=== PATIENT | female | born 1965 | race Caucasian/White ===

== ENCOUNTER 2016-09-22 | Emergency (ER) | payer MEDICARE, OTHER, MEDICAID ==
[~2016-09-22] MED LIST: ARANESP IJ; ATENOLOL50 MG PO; BABY ASPIRIN81 MG PO; BENADRYL ALLERG25 M1 PO; BIOTIN PO; BUDESONIDE EC3 M1 PO; CALCITRIOL0.5 MC1 PO; CALCITRIOL0.5 MCG PO; CALCITRIOL1 MCG/1 ML IV; CALCIUM + D T1 UDTAB PO; CALCIUM ACETAT667 MG PO; CALCIUM PO; CATAPRES0.3 M1 PO; CHILDREN'S ASPI81 M1 PO; CLEOCIN HCL300 MG PO; CLONIDINE HCL0.3 M1 PO; CLONIDINE HCL0.3 MG PO; COREG25 M1 PO; DIPHENHYDRAMINE PO; DULCOLAX5 M1 PO; EMLA CREAM30 GM TP; EPOGEN10000 U/ML IJ; ERGOCALCIF50000 UNIT PO; FLAX SEED OIL1000 M2 PO; GLIPIZIDE ER2.5 MG PO; HYDRALAZINE HCL10 M1 PO; HYDROCODONE/APA1 CAP PO; HYDROXYZINE HCL25 MG PO; LASIX40 M1 PO; LEVAQUIN250 M3 PO; LIDOCAINE CREAM; LORTAB 5/5001 EA PO; LOSARTAN POTAS100 M1 PO; LOSARTAN POTASS50 M1 PO; MAG6464 MG PO; MAGONATE54 MG/5 ML PO; MELATONIN PO; MELATONIN1 MG/4 ML PO; METOPROLOL TART25 MG PO; MULTIVITAMIN1 TAB PO; MULTIVITAMINS1 EAC6 PO; MYFORTIC360 M1 PO; NOVOLOG100 UNITS/ SC; ONDANSETRON ODT4 M1 PO; OYSCO-500500 MG PO; PRAVASTATIN SOD10 M1 PO; PREDNISONE1 MG; PREDNISONE2.5 MG; PREDNISONE5 M1 PO; PREDNISONE5 MG; PRINIVIL2.5 MG PO; PRINIVIL5 MG PO; PROGRAF1 M1 PO; RENAGEL800 MG PO; RENVELA800 MG PO; SENSIPAR30 MG PO; STOP THE FOLLOWING:; TRESIBA FL100 UNIT/1 SC; TUMS300 MG PO; TUMS500 MG PO; TYLENOL325 M2 PO; TYLENOL500 MG PO; VITAMIN C PO; VITAMIN C1000 M1 PO; VITAMIN C1000 MG PO; VITAMIN D; VITAMIN D10000 UNIT PO; VITAMIN D2400 UNI1 PO; VITAMIN D50000 UNIT PO; XANAX0.25 MG; XYLOCAINE35 GM TP; ZOFRAN4 M1 PO; ZOFRAN4 MG PO; [UNRECOGNIZED DRUG - OTHER]; [UNRECOGNIZED DRUG - OTHER]; [UNRECOGNIZED DRUG - OTHER] PO; [UNRECOGNIZED DRUG - OTHER] PO
[2016-09-22] MEDS ORDERED: BYSTOLIC10 M1 PO (14:18)
[2016-09-22] MEDS ORDERED: ZOFRAN4 M2 PO (14:19)
[2016-09-22] MEDS ORDERED: RENVELA800 M1 PO (14:19)
[2016-09-22] MEDS ORDERED: TERAZOSIN HCL2 M1 PO (14:19)
[2016-09-22] MEDS ORDERED: TRESIBA FL100 UNIT/1 SC (14:20)
[2016-09-22] MEDS ORDERED: NOVOLOG FL100 UNIT/2 SC ×4 (14:20→14:21)
[2016-09-22] MEDS ORDERED: [UNRECOGNIZED DRUG - OTHER] OP (14:25)
[2016-09-22] MEDS ORDERED: ROCALTROL0.25 MC1 PO (14:26)
[2016-09-22] MEDS ORDERED: HYDROCODON-ACE1 EA16 PO (14:52)
[2016-09-22] MEDS ORDERED: MELATONIN1 M2 PO (14:52)
[2016-09-22] MEDS ORDERED: MIRALAX17 G2 PO (14:53)
[2016-09-22] MEDS ORDERED: TYLENOL EXTRA500 M1 PO (14:53)
[2016-09-22] MEDS ORDERED: FLONASE ALLERG9.9 ML (15:25)
[2016-09-22] MEDS ORDERED: KAYEXALATE453.6 G1 PO (15:26)
== END 2016-09-22 16:16 ==
DX: S29.011A Strain of muscle and tendon of front wall of thorax, initial encounter (principal); E11.22 Type 2 diabetes mellitus with diabetic chronic kidney disease; I12.0 Hypertensive chronic kidney disease with stage 5 chronic kidney disease or end stage renal disease; N18.6 End stage renal disease; X58.XXXA Exposure to other specified factors, initial encounter

== ENCOUNTER 2016-10-10 14:36 | Emergency (ER) | payer MEDICARE, OTHER, MEDICAID ==
[~2016-10-10 14:36] MED LIST changes: +BYSTOLIC10 M1 PO; +FLONASE ALLERG9.9 ML; +HYDROCODON-ACE1 EA16 PO; +KAYEXALATE453.6 G1 PO; +MELATONIN1 M2 PO; +MIRALAX17 G2 PO; +NOVOLOG FL100 UNIT/2 SC; +RENVELA800 M1 PO; +ROCALTROL0.25 MC1 PO; +TERAZOSIN HCL2 M1 PO; +TYLENOL EXTRA500 M1 PO; +ZOFRAN4 M2 PO; +[UNRECOGNIZED DRUG - OTHER] OP
[2016-10-10] MEDS ORDERED: CYCLOBENZAPRINE5 M1 PO (16:00)
[2016-10-10] MEDS ORDERED: ROXICODONE5 M2 PO (16:00)
== END 2016-10-10 19:01 ==
LOC: EDMED 14:36
DX: K59.00 Constipation, unspecified (principal); I12.0 Hypertensive chronic kidney disease with stage 5 chronic kidney disease or end stage renal disease; N18.6 End stage renal disease